=== PATIENT | male | born 1990 | race Caucasian/White ===

== ENCOUNTER 2018-07-12 08:41 | Emergency (ER) | payer MEDICAID | END 2018-07-12 10:48 | disposition home or self-care (01) | LOC: FTE 10:48 | DX: S06.0X0A Concussion without loss of consciousness, initial encounter (principal); W20.8XXA Other cause of strike by thrown, projected or falling object, initial encounter; Y92.9 Unspecified place or not applicable; Z87.891 Personal history of nicotine dependence | CPT/HCPCS: 99283; Z7502 ==

== ENCOUNTER 2018-07-23 09:31 | Emergency (ER) | payer MEDICAID ==
[2018-07-23] MEDS: ONDANSETRON (ODT) 4 MG TAB ODT (10:45)
[2018-07-23] MEDS: ACETAMINOPHEN 325 MG TAB PO (10:45)
[2018-07-23] MEDS: LORAZEPAM 1 MG TAB PO (13:28)
== END 2018-07-23 13:36 | disposition home or self-care (01) ==
LOC: FTE 09:31
DX: S09.90XA Unspecified injury of head, initial encounter (principal); F17.210 Nicotine dependence, cigarettes, uncomplicated; R42 Dizziness and giddiness; W18.09XA Striking against other object with subsequent fall, initial encounter; Y92.89 Other specified places as the place of occurrence of the external cause
CPT/HCPCS: 70450; 76536; 99284-25